=== PATIENT | male | born 1970 | race Caucasian/White ===

== ENCOUNTER 2018-02-05 10:30 | Outpatient (RCR) | payer MEDICARE, SELFPAY ==
[2018-01-29 09:44] VITALS: BP 140/77; PULSE 68; RESP 16; TEMP 36.5; BMI 43.0
--- NOTE | 2018-01-29 11:34 | PCM.WC.HP ---
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 Status: Acute Current Visit: Yes Qualifiers: Diabetic retinopathy severity: with severe nonproliferative retinopathy Laterality: bilateral Code(s): E08.319 - Diabetes mellitus due to underlying condition with unspecified diabetic retinopathy without macular edema (2) Type 2 diabetes mellitus with diabetic polyneuropathy Status: Chronic Current Visit: No Code(s): E11.42 - Type 2 diabetes mellitus with diabetic polyneuropathy (3) Open wound of abdominal wall with complication Status: Acute Current Visit: Yes Code(s): S31.109A - Unspecified open wound of abdominal wall, unspecified quadrant without penetration into peritoneal cavity, initial encounter (4) Infected open wound Status: Acute Current Visit: Yes Code(s): T14.8XXA - Other injury of unspecified body region, initial encounter; L08.9 - Local infection of the skin and subcutaneous tissue, unspecified (5) Nonhealing nonsurgical wound Status: Acute Current Visit: Yes Code(s): T14.8XXA - Other injury of unspecified body region, initial encounter (6) Morbid obesity with BMI of 45.0-49.9, adult Status: Acute Current Visit: Yes Code(s): E66.01 - Morbid (severe) obesity due to excess calories; Z68.42 - Body mass index (BMI) 45.0-49.9, adult History of Present Illness Date of Service: 01/29/18 Chief Complaint: Abdominal wall ulcer History of Wound: 47-year-old white male morbid obesity diabetic not controlled. Appears here with an abdominal open ulcer on the right side. Patient is insulin-dependent diabetic that injects only on the right side because of visual problems. Approximately 3 months ago developed a hardened mass on his right abdomen and told it was a scar tissue and to start using other areas to inject. Patient developed redness swelling and finally it opened and drained yellow and orange pus. Patient was then sent to the wound center patient has been using topical antibiotics to the area. Past Medical History Past Medical History: Chronic Problems Type 2 diabetes mellitus with diabetic polyneuropathy (Chronic) Past Medical History: Open ulcer abdominal abscess. Diabetic retinopathy with blindness. Edema bilateral lower leg Surgical History: noncontributory Allergies/Adverse Reactions: Allergies adhesive tape Allergy (Verified 01/29/18 10:05) Rash latex Allergy (Verified 01/29/18 10:05) Rash Penicillins [PCN] Allergy (Verified 01/29/18 10:05) Rash Home Medications: Ambulatory Orders Medication Instructions Recorded Amlodipine [Norvasc] 10 mg PO DAILY 03/31/17 Atorvastatin Calcium [Lipitor] 20 mg PO QHS 03/31/17 Bumetanide [Bumex] 2 mg PO BID 03/31/17 Carvedilol [Coreg] 12.5 mg PO DAILY 03/31/17 Cholecalciferol (Vitamin D3) 1,000 unit PO BID 03/31/17 [Vitamin D3] Ferrous Sulfate 65 mg PO BIDCM 03/31/17 Loratadine [Claritin] 10 mg PO DAILY 03/31/17 Losartan Potassium [Cozaar] 100 mg PO DAILY 03/31/17 Metformin(XR) [Glucophage Xr] 1,000 mg PO BID 03/31/17 Omeprazole [Prilosec] 40 mg PO BID 03/31/17 Spironolactone [Aldactone] 25 mg PO DAILY 03/31/17 Lives: Alone Smoking Status: Never smoker Tobacco Use: Non-smoker Review of Systems Constitutional: Denies: Chills, Fever Eyes: Denies: Blurred vision, Drainage, Pain HEENT: Denies: Difficulty Hearing, Difficulty Swallowing, Sore Throat, Visual Changes Cardiovascular: Denies: Chest Pain, Palpitations, Syncope Respiratory: Denies: Cough, Shortness of Breath Gastrointestinal: Denies: Abdominal Pain, Nausea, Vomiting Genitourinary: Denies: Dysuria, Frequency Musculoskeletal: Denies: Joint Pain, Muscle pain Skin: Reports: Wounds - Abscess right abdomen open. Denies: Jaundice, Rash Neurological: Denies: Balance problems, Change in Speech, Difficulty swallowing, Focal weakness Psychiatric: Denies: Anxiety, Depression Endocrine: Denies: Change in Body Habitus Hematologic/ Lymphatic: Denies: Adenopathy - Physical Exam Vital Signs Temp Pulse Resp BP 97.7 F L 68 16 140/77 H 01/29/18 09:44 01/29/18 09:44 01/29/18 09:44 01/29/18 09:44 General: Oriented x3, Cooperative, Well developed HEENT: Atraumatic, PERRLA Oral: Moist Mucosa Neck: Supple, No JVD Lungs: Clear to auscultation, Normal air movement Cardiovascular: Regular rate, Regular Rhythm Abdomen: Bowel Sounds Present, Soft, Non Tender, No Hepato-splenomegaly, - - Open ulcer right abdomen Extremities: No clubbing, Edema Wound Measurements and Assessment - Nurse 1 - General Ulcer Measurement Start: 01/29/18 09:36 Freq: Status: Active Protocol: Activity Type Activity Date Activity User E-Sign Co-Sign Detail Recorded Client Recorded Date Recorded By Document 01/29/18 09:44 [facility] [id number] 01/29/18 09:58 [facility] 01/29/18 09:44 Wound Center Nurse 1 [Ulcer Assessment] #2- RT ABD -Combined with other wound No -Current Size (cm) - Length 1.4 -Current Size (cm) - Width 1.9 -Current Size (cm) - Depth 0.3 -Total Square Cm 2.66 -Date of Last Picture (Recall this 01/29/18 field) -Photo Taken Yes -Epithelialization None Present -Tunneling No -Undermining/Tunneling No -Circular Undermining No -Exudate Amt Small (1-33%) -Exudate Type Sanguineous -Wound Margin Distinct, Outline Attached -Granulation Amt Medium (34-66%) -Granulation Quality Red -Slough/Fibrin Yes -Necrosis Amt Small (1-33%) -Necrotic Tissue Type Adherent Slough -Texture (Virginie-wound Skin Appearance) Excoriation Scarring -Moisture (Virginie-wound Skin Appearance Assessed ) -Color (Virginie-wound Skin Appearance) Erythema -Temperature (Virginie-wound Skin No Abnormality Appearance) (Pt Warm) -Tenderness on Palpation (Virginie-wound No Skin Appearance) -Ulcer Cleansing Rinsed/ Irrigated with Saline -Foul Odor after Cleansing No -Anesthetic Used 5% Lidocaine Gel - Nurse 2 - General Ulcer CM Notes Start: 01/29/18 09:36 Freq: Status: Active Protocol: Activity Type Activity Date Activity User E-Sign Co-Sign Detail Recorded Client Recorded Date Recorded By Document 01/29/18 10:28 [id number] 01/29/18 10:29 01/29/18 10:28 Wound Center Nurse 2 [Procedure/Treatment] -Time 10:28 -Correct Patient Yes -Correct Side, Site, Position Yes -Correct Procedure Yes -Procedure Performed Yes -Type of Procedure Debridement -Clinical Debridement Subcutaneous -Post Debridement Size (cm) - Length 1.3 -Post Debridement Size (cm) - Width 2.0 -Post Debridement Size (cm) - Depth 0.5 -Total Square Cm 2.60 -Wound/Ulcer Outcome Not Healed -Ulcer Cleansing Rinsed/ Irrigated with Saline -Foul Odor after Cleansing No -Bioengineered Tissue No -Injectable Lidocaine (%) 4 -Injectable Lidocaine w/ Epi (%) 5 -Bleeding Controlled with NA -Treatment Response Procedure Tolerated Well [See Physician Procedure note for Specifics] Pain Scale: 0-10 Numeric [Pain] -Is Patient Pain Free? Yes Musculoskeletal: No Tenderness to Palpation of Joints or Extremities Lymphatic: No Cervical, Supraclavicular, or Inguinal Adenopathy Neurological: Cranial nerves II-XII grossly intact, Neuro grossly intact Psych/Mental Status: Normal Affect, Appropriate, Alert and oriented to time, place, person, mood and affect Debridement Note Post-Debridement Measurements/Treatment WC - Nurse 2 - General Ulcer CM Notes Start: 01/29/18 09:36 Freq: Status: Active Protocol: Activity Type Activity Date Activity User E-Sign Co-Sign Detail Recorded Client Recorded Date Recorded By Document 01/29/18 10:28 [facility] [id number] 01/29/18 10:29 [facility] 01/29/18 10:28 Wound Center Nurse 2 #2- RT ABD -Time 10:28 -Correct Patient Yes -Correct Side, Site, Position Yes -Correct Procedure Yes -Procedure Performed Yes -Type of Procedure Debridement -Clinical Debridement Subcutaneous -Post Debridement Size (cm) - Length 1.3 -Post Debridement Size (cm) - Width 2.0 -Post Debridement Size (cm) - Depth 0.5 -Total Square Cm 2.60 -Wound/Ulcer Outcome Not Healed -Ulcer Cleansing Rinsed/ Irrigated with Saline -Foul Odor after Cleansing No -Bioengineered Tissue No -Injectable Lidocaine (%) 4 -Injectable Lidocaine w/ Epi (%) 5 -Bleeding Controlled with NA -Treatment Response Procedure Tolerated Well Pain Scale: 0-10 Numeric Is Patient Pain Free? Yes Wound debrided: Right abdominal wall ulcer Type of Debridement: Excisional debridement Anesthesia Used: 5% Lidocaine Gel Depth: Down to and including healthy tissue, in the subcutaneous layer, to muscle Percentage of wound debrided: 100 Instrument Used: 5mm curette Tissue Removed: Slough and fibrin Severity: Limited To Skin Breakdown Amount of bleeding with debridement: Mild Bleeding Controlled with: Compression and gauze Patient tolerated procedure well Assessment/Plan Cultures anaerobic and aerobic hemoglobin A1c and a preop human Active Problems Diabetic retinopathy associated with diabetes mellitus due to underlying condition (Acute) Open wound of abdominal wall with complication (Acute) Infected open wound (Acute) Nonhealing nonsurgical wound (Acute) Morbid obesity with BMI of 45.0-49.9, adult (Acute) Assessment: Infected abdominal wall ulcer. Abscess open abdominal wall right side. Diabetic type II uncontrolled. Morbid obesity. Retinopathy diabetic partial blindness Plan: Wash abdominal wall with Hibiclens. Apply Aquacel roping to the undermining and then into the base of the ulcer moistened Adaptic cover with gauze and tape. We will call with the results of the cultures and labs. Follow-up one week. Discussed better control of his diabetes
[2018-01-29 12:42] LABS: Prealbumin 35.7 mg/dL (20.0-40.0)
[2018-02-05 10:42] VITALS: BMI 43.0
--- NOTE | 2018-02-05 12:12 | PCM.WC.PN ---
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 Status: Acute Current Visit: Yes Qualifiers: Diabetic retinopathy severity: with severe nonproliferative retinopathy Laterality: bilateral Code(s): E08.319 - Diabetes mellitus due to underlying condition with unspecified diabetic retinopathy without macular edema (2) Type 2 diabetes mellitus with diabetic polyneuropathy Status: Chronic Current Visit: Yes Code(s): E11.42 - Type 2 diabetes mellitus with diabetic polyneuropathy (3) Open wound of abdominal wall with complication Status: Acute Current Visit: Yes Code(s): S31.109A - Unspecified open wound of abdominal wall, unspecified quadrant without penetration into peritoneal cavity, initial encounter (4) Infected open wound Status: Acute Current Visit: Yes Code(s): T14.8XXA - Other injury of unspecified body region, initial encounter; L08.9 - Local infection of the skin and subcutaneous tissue, unspecified (5) Nonhealing nonsurgical wound Status: Acute Current Visit: Yes Code(s): T14.8XXA - Other injury of unspecified body region, initial encounter (6) Morbid obesity with BMI of 45.0-49.9, adult Status: Acute Current Visit: Yes Code(s): E66.01 - Morbid (severe) obesity due to excess calories; Z68.42 - Body mass index (BMI) 45.0-49.9, adult Type of Wound Date of Service: 02/05/18 Chief Complaint: Abdominal wall ulcer History of Wound: 47-year-old white male morbid obesity diabetic not controlled. Appears here with an abdominal open ulcer on the right side. Patient is insulin-dependent diabetic that injects only on the right side because of visual problems. Approximately 3 months ago developed a hardened mass on his right abdomen and told it was a scar tissue and to start using other areas to inject. Patient developed redness swelling and finally it opened and drained yellow and orange pus. Patient was then sent to the wound center patient has been using topical antibiotics to the area. Progress of Wound: The abdominal wound is much larger and he developed a another inferior abscess below that was oozing pus with undermining of 1.0 under the skin. There was no bridging or connection of the 2 ulcers yet but I think they are ultimately 1 ulcer. We cultured the pus his original cultures showed rare but I did go ahead and treat him. Pre-albumin was normal for him hemoglobin A1c was well. - Physical Exam Vital Signs Temp Pulse Resp BP 97.7 F L 68 16 140/77 H 01/29/18 09:44 01/29/18 09:44 01/29/18 09:44 01/29/18 09:44 General: Oriented x3, Cooperative, Well developed HEENT: Atraumatic, PERRLA Oral: Moist Mucosa Neck: Supple, No JVD Lungs: Clear to auscultation, Normal air movement Cardiovascular: Regular rate, Regular Rhythm Abdomen: Bowel Sounds Present, Soft, Non Tender, No Hepato-splenomegaly Extremities: No clubbing, No edema Wound Measurements and Assessment WC - Nurse 1 - General Ulcer Measurement Start: 01/29/18 09:36 Freq: Status: Active Protocol: Activity Type Activity Date Activity User E-Sign Co-Sign Detail Recorded Client Recorded Date Recorded By Document 02/05/18 10:42 [id number] 02/05/18 10:48 02/05/18 10:42 Wound Center Nurse 1 [Ulcer Assessment] #2- RT ABD -Combined with other wound No -Current Size (cm) - Length 1.7 -Current Size (cm) - Width 3.3 -Current Size (cm) - Depth 0.6 -Total Square Cm 5.61 -Photo Taken No -Epithelialization None Present -Tunneling No -Undermining/Tunneling No -Circular Undermining No -Exudate Amt Medium (34-66%) -Exudate Type Serosanguineous -Wound Margin Distinct, Outline Attached -Granulation Amt None Present (0 %) -Granulation Quality N/A -Slough/Fibrin No -Necrosis Amt None Present (0 %) -Texture (Virginie-wound Skin Appearance) No Abnormality Assessed -Moisture (Virginie-wound Skin Appearance No Abnormality ) Assessed -Color (Virginie-wound Skin Appearance) Assessed Erythema -Temperature (Virginie-wound Skin No Abnormality Appearance) (Pt Warm) -Tenderness on Palpation (Virginie-wound No Skin Appearance) -Ulcer Cleansing Rinsed/ Irrigated with Saline -Foul Odor after Cleansing No -Anesthetic Used 4% Lidocaine Solution [Edema Assessment] -Lower Limb Edema Present NA - Nurse 2 - General Ulcer CM Notes Start: 01/29/18 09:36 Freq: Status: Active Protocol: Activity Type Activity Date Activity User E-Sign Co-Sign Detail Recorded Client Recorded Date Recorded By Document 02/05/18 11:14 [id number] 02/05/18 11:21 02/05/18 11:14 Wound Center Nurse 2 [Procedure/Treatment] #3 INFERIOR ABCESS ULCER -Time 11:19 -Correct Patient Yes -Correct Side, Site, Position Yes -Correct Procedure Yes -Procedure Performed Yes -Type of Procedure Debridement -Clinical Debridement Subcutaneous -Post Debridement Size (cm) - Length 0.3 -Post Debridement Size (cm) - Width 0.5 -Post Debridement Size (cm) - Depth 1.0 -Total Square Cm 0.15 -Wound/Ulcer Outcome Not Healed -Ulcer Cleansing Rinsed/ Irrigated with Saline -Foul Odor after Cleansing No -Bioengineered Tissue No -Bleeding Controlled with NA -Other CIRCUMFERENTIAL UNDERMINING @ 1.0 CM -Treatment Response Procedure Tolerated Well #2- RT ABD -Time 11:20 -Correct Patient Yes -Correct Side, Site, Position Yes -Correct Procedure Yes -Procedure Performed Yes -Type of Procedure Debridement -Clinical Debridement Subcutaneous -Post Debridement Size (cm) - Length 2.0 -Post Debridement Size (cm) - Width 3.3 -Post Debridement Size (cm) - Depth 1.6 -Total Square Cm 6.60 -Wound/Ulcer Outcome Not Healed -Ulcer Cleansing Rinsed/ Irrigated with Saline -Foul Odor after Cleansing No -Bioengineered Tissue No -Bleeding Controlled with NA -Treatment Response Procedure Tolerated Well [See Physician Procedure note for Specifics] Pain Scale: 0-10 Numeric [Pain] -Is Patient Pain Free? Yes Musculoskeletal: No Tenderness to Palpation of Joints or Extremities Lymphatic: No Cervical, Supraclavicular, or Inguinal Adenopathy Neurological: Cranial nerves II-XII grossly intact, Neuro grossly intact Psych/Mental Status: Normal Affect, Appropriate, Alert and oriented to time, place, person, mood and affect Debridement Note Post-Debridement Measurements/Treatment WC - Nurse 2 - General Ulcer CM Notes Start: 01/29/18 09:36 Freq: Status: Active Protocol: Activity Type Activity Date Activity User E-Sign Co-Sign Detail Recorded Client Recorded Date Recorded By Document 01/29/18 10:28 [id number] 01/29/18 10:29 Document 02/05/18 11:14 [id number] 02/05/18 11:21 01/29/18 02/05/18 10:28 11:14 Wound Center Nurse 2 #3 INFERIOR ABCESS ULCER -Time 11:19 -Correct Patient Yes -Correct Side, Site, Position Yes -Correct Procedure Yes -Procedure Performed Yes -Type of Procedure Debridement -Clinical Debridement Subcutaneous -Post Debridement Size (cm) - Length 0.3 -Post Debridement Size (cm) - Width 0.5 -Post Debridement Size (cm) - Depth 1.0 -Total Square Cm 0.15 -Wound/Ulcer Outcome Not Healed -Ulcer Cleansing Rinsed/ Irrigated with Saline -Foul Odor after Cleansing No -Bioengineered Tissue No -Bleeding Controlled with NA -Other CIRCUMFERENTIAL UNDERMINING @ 1.0 CM -Treatment Response Procedure Tolerated Well #2- RT ABD -Time 10:28 11:20 -Correct Patient Yes Yes -Correct Side, Site, Position Yes Yes -Correct Procedure Yes Yes -Procedure Performed Yes Yes -Type of Procedure Debridement Debridement -Clinical Debridement Subcutaneous Subcutaneous -Post Debridement Size (cm) - Length 1.3 2.0 -Post Debridement Size (cm) - Width 2.0 3.3 -Post Debridement Size (cm) - Depth 0.5 1.6 -Total Square Cm 2.60 6.60 -Wound/Ulcer Outcome Not Healed Not Healed -Ulcer Cleansing Rinsed/ Rinsed/ Irrigated with Irrigated with Saline Saline -Foul Odor after Cleansing No No -Bioengineered Tissue No No -Injectable Lidocaine (%) 4 -Injectable Lidocaine w/ Epi (%) 5 -Bleeding Controlled with NA NA -Treatment Response Procedure Procedure Tolerated Well Tolerated Well Pain Scale: 0-10 Numeric Is Patient Pain Free? Yes Yes Wound debrided: Right abdominal ulcer Type of Debridement: Excisional debridement Anesthesia Used: 5% Lidocaine Gel Depth: Down to and including healthy tissue, in the subcutaneous layer Percentage of wound debrided: 100 Instrument Used: 5mm curette Tissue Removed: Fibrin Severity: Limited To Skin Breakdown Amount of bleeding with debridement: Mild Bleeding Controlled with: Compression and gauze Patient tolerated procedure well - Additional Wound Wound debrided: Inferior abdominal ulcer abscess Type of Debridement: Excisional debridement Depth: in the subcutaneous layer Percentage of wound debrided: 100 Instrument Used: 5mm curette Tissue Removed: Pus and fibrin Severity: Fat Layer Exposed Amount of bleeding with debridement: Moderate Bleeding Controlled with: Compression and gauze Patient tolerated procedure: Patient tolerated procedure well Assessment/Plan Active Problems Diabetic retinopathy associated with diabetes mellitus due to underlying condition (Acute) Open wound of abdominal wall with complication (Acute) Infected open wound (Acute) Nonhealing nonsurgical wound (Acute) Morbid obesity with BMI of 45.0-49.9, adult (Acute) Type 2 diabetes mellitus with diabetic polyneuropathy (Chronic) Assessment: Infected abdominal wall ulcer. Abscess open abdominal wall right side. Diabetic type II uncontrolled. Morbid obesity. Retinopathy diabetic partial blindness Plan: Wash abdominal wall with Hibiclens. Apply Aquacel roping to the undermining and then into the base of the ulcer. And also into the inferior ulcer pack ulcer moistened Adaptic cover with gauze and tape. We will call with the results of the cultures. Follow-up one week. Discussed better control of his diabetes
== END 2018-02-09 23:59 ==
LOC: WC 10:30
PROVIDERS: Visit Provider Nurse Practitioner
DX: E11.622 Type 2 diabetes mellitus with other skin ulcer (principal); E11.42 Type 2 diabetes mellitus with diabetic polyneuropathy; E11.319 Type 2 diabetes mellitus with unspecified diabetic retinopathy without macular edema; E66.01 Morbid (severe) obesity due to excess calories; Z68.42 Body mass index [BMI] 45.0-49.9, adult; Z71.3 Dietary counseling and surveillance; E11.65 Type 2 diabetes mellitus with hyperglycemia; L98.491 Non-pressure chronic ulcer of skin of other sites limited to breakdown of skin; L98.492 Non-pressure chronic ulcer of skin of other sites with fat layer exposed; Z79.899 Other long term (current) drug therapy; Z79.84 Long term (current) use of oral hypoglycemic drugs
CPT/HCPCS: 11042; 83036; 84134; 87070; 87075; 87077; 87186; 87205; 99213; G0463

== ENCOUNTER 2018-02-26 10:30 | Outpatient (RCR) | payer MEDICARE, SELFPAY ==
[2018-02-10 01:30] VITALS: BP 140/77; PULSE 68; RESP 16; TEMP 36.5
[2018-02-12 11:03] VITALS: BP 148/76; PULSE 69; RESP 16; TEMP 36.6
--- NOTE | 2018-02-12 11:49 | PCM.WC.PN ---
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 Status: Acute Current Visit: Yes Code(s): E08.319 - Diabetes mellitus due to underlying condition with unspecified diabetic retinopathy without macular edema (2) Morbid obesity with BMI of 45.0-49.9, adult Status: Acute Current Visit: Yes Code(s): E66.01 - Morbid (severe) obesity due to excess calories; Z68.42 - Body mass index (BMI) 45.0-49.9, adult (3) Open wound of abdominal wall with complication Status: Acute Current Visit: Yes Qualifiers: Encounter type: subsequent encounter Qualified Code(s): S31.109D - Unspecified open wound of abdominal wall, unspecified quadrant without penetration into peritoneal cavity, subsequent encounter Code(s): S31.109A - Unspecified open wound of abdominal wall, unspecified quadrant without penetration into peritoneal cavity, initial encounter Type of Wound Date of Service: 02/12/18 Chief Complaint: Abdominal wall ulcer History of Wound: 47-year-old white male morbid obesity diabetic not controlled. Appears here with an abdominal open ulcer on the right side. Patient is insulin-dependent diabetic that injects only on the right side because of visual problems. Approximately 3 months ago developed a hardened mass on his right abdomen and told it was a scar tissue and to start using other areas to inject. Patient developed redness swelling and finally it opened and drained yellow and orange pus. Patient was then sent to the wound center patient has been using topical antibiotics to the area. Progress of Wound: The abdominal wound is much larger and he developed a another inferior abscess below that was oozing pus with undermining of 1.0 under the skin. There was no bridging or connection of the 2 ulcers yet but I think they are ultimately 1 ulcer. We cultured the pus his original cultures showed rare but I did go ahead and treat him. Pre-albumin was normal for him hemoglobin A1c was well. - Physical Exam Vital Signs Temp Pulse Resp BP 97.8 F 69 16 148/76 H 02/12/18 11:03 02/12/18 11:03 02/12/18 11:02/12/18 11:03 General: Oriented x3, Cooperative, Well developed HEENT: Atraumatic, PERRLA Oral: Moist Mucosa Neck: Supple, No JVD Lungs: Clear to auscultation, Normal air movement Cardiovascular: Regular rate, Regular Rhythm Abdomen: Bowel Sounds Present, Soft, Non Tender, No Hepato-splenomegaly, - - Right abdominal ulcer and inferior and superior Extremities: No clubbing, No edema Wound Measurements and Assessment WC - Nurse 1 - General Ulcer Measurement Start: 02/12/18 10:30 Freq: Status: Active Protocol: Activity Type Activity Date Activity User E-Sign Co-Sign Detail Recorded Client Recorded Date Recorded By Document 02/12/18 11:03 [id number] 02/12/18 11:16 02/12/18 11:03 Wound Center Nurse 1 [Ulcer Assessment] #3 INFERIOR ABCESS ULCER -Combined with other wound No -Current Size (cm) - Length 0.8 -Current Size (cm) - Width 1.6 -Current Size (cm) - Depth 0.4 -Total Square Cm 1.28 -Date of Last Picture (Recall this 02/12/18 field) -Photo Taken Yes -Epithelialization None Present -Tunneling No -Undermining/Tunneling Yes -Undermining/Tunneling Starts (O' 7 clock) -Undermining/Tunneling Ends (O'clock) 10 -Maximum Distance (cm) 0.8 -Circular Undermining No -Exudate Amt Medium (34-66%) -Exudate Type Serosanguineous -Wound Margin Distinct, Outline Attached -Granulation Amt Medium (34-66%) -Granulation Quality [place] Red -Slough/Fibrin Yes -Necrosis Amt Medium (34-66%) -Necrotic Tissue Type Adherent Slough -Structure Exposed None/Limited to Skin Breakdown -Texture (Virginie-wound Skin Appearance) No Abnormality Assessed -Moisture (Virginie-wound Skin Appearance No Abnormality ) Assessed -Color (Virginie-wound Skin Appearance) No Abnormality Assessed -Temperature (Virginie-wound Skin No Abnormality Appearance) (Pt Warm) -Tenderness on Palpation (Virginie-wound No Skin Appearance) -Ulcer Cleansing Rinsed/ Irrigated with Saline -Foul Odor after Cleansing No -Anesthetic Used 4% Lidocaine Solution #2- RT ABD SUPERIOR -Combined with other wound No -Current Size (cm) - Length 1.9 -Current Size (cm) - Width 3.7 -Current Size (cm) - Depth 0.3 -Total Square Cm 7.03 -Photo Taken No -Tunneling No -Undermining/Tunneling No -Circular Undermining No -Exudate Amt Medium (34-66%) -Exudate Type Serosanguineous -Wound Margin Distinct, Outline Attached -Granulation Amt Medium (34-66%) -Granulation Quality [place] Red -Slough/Fibrin Yes -Necrosis Amt None Present (0 %) -Necrotic Tissue Type Adherent Slough -Texture (Virginie-wound Skin Appearance) No Abnormality Assessed -Moisture (Virginie-wound Skin Appearance No Abnormality ) Assessed -Color (Virginie-wound Skin Appearance) No Abnormality Assessed Not Assessed -Temperature (Virginie-wound Skin No Abnormality Appearance) (Pt Warm) -Tenderness on Palpation (Virginie-wound No Skin Appearance) -Ulcer Cleansing Rinsed/ Irrigated with Saline -Foul Odor after Cleansing No -Anesthetic Used 5% Lidocaine Gel [Edema Assessment] -Lower Limb Edema Present NA WC - Nurse 2 - General Ulcer CM Notes Start: 02/12/18 10:30 Freq: Status: Active Protocol: Activity Type Activity Date Activity User E-Sign Co-Sign Detail Recorded Client Recorded Date Recorded By Document 02/12/18 11:28 MW [id number] 02/12/18 11:35 MW 02/12/18 11:28 Wound Center Nurse 2 [Procedure/Treatment] #3 INFERIOR ABCESS ULCER -Time 11:29 -Correct Patient Yes -Correct Side, Site, Position Yes -Correct Procedure Yes -Procedure Performed Yes -Type of Procedure Debridement -Clinical Debridement Subcutaneous -Post Debridement Size (cm) - Length 0.8 -Post Debridement Size (cm) - Width 1.5 -Post Debridement Size (cm) - Depth 0.3 -Total Square Cm 1.20 -Wound/Ulcer Outcome Not Healed -Ulcer Cleansing Rinsed/ Irrigated with Saline -Foul Odor after Cleansing No -Bioengineered Tissue No -Bleeding Controlled with Pressure -Treatment Response Procedure Tolerated Well #2- RT ABD SUPERIOR -Time 11:30 -Correct Patient Yes -Correct Side, Site, Position Yes -Correct Procedure Yes -Procedure Performed Yes -Type of Procedure Debridement -Clinical Debridement Subcutaneous -Post Debridement Size (cm) - Length 1.8 -Post Debridement Size (cm) - Width 3.6 -Post Debridement Size (cm) - Depth 0.3 -Total Square Cm 6.48 -Wound/Ulcer Outcome Not Healed -Ulcer Cleansing Rinsed/ Irrigated with Saline -Foul Odor after Cleansing No -Bioengineered Tissue No -Bleeding Controlled with Pressure -Treatment Response Procedure Tolerated Well [See Physician Procedure note for Specifics] Pain Scale: 0-10 Numeric [Pain] -Is Patient Pain Free? Yes Musculoskeletal: No Tenderness to Palpation of Joints or Extremities Lymphatic: No Cervical, Supraclavicular, or Inguinal Adenopathy Neurological: Cranial nerves II-XII grossly intact, Neuro grossly intact Psych/Mental Status: Normal Affect, Appropriate Debridement Note Post-Debridement Measurements/Treatment WC - Nurse 2 - General Ulcer CM Notes Start: 02/12/18 10:30 Freq: Status: Active Protocol: Activity Type Activity Date Activity User E-Sign Co-Sign Detail Recorded Client Recorded Date Recorded By Document 02/12/18 11:28 MW [id number] 02/12/18 11:35 MW 02/12/18 11:28 Wound Center Nurse 2 #3 INFERIOR ABCESS ULCER -Time 11:29 -Correct Patient Yes -Correct Side, Site, Position Yes -Correct Procedure Yes -Procedure Performed Yes -Type of Procedure Debridement -Clinical Debridement Subcutaneous -Post Debridement Size (cm) - Length 0.8 -Post Debridement Size (cm) - Width 1.5 -Post Debridement Size (cm) - Depth 0.3 -Total Square Cm 1.20 -Wound/Ulcer Outcome Not Healed -Ulcer Cleansing Rinsed/ Irrigated with Saline -Foul Odor after Cleansing No -Bioengineered Tissue No -Bleeding Controlled with Pressure -Treatment Response Procedure Tolerated Well #2- RT ABD SUPERIOR -Time 11:30 -Correct Patient Yes -Correct Side, Site, Position Yes -Correct Procedure Yes -Procedure Performed Yes -Type of Procedure Debridement -Clinical Debridement Subcutaneous -Post Debridement Size (cm) - Length 1.8 -Post Debridement Size (cm) - Width 3.6 -Post Debridement Size (cm) - Depth 0.3 -Total Square Cm 6.48 -Wound/Ulcer Outcome Not Healed -Ulcer Cleansing Rinsed/ Irrigated with Saline -Foul Odor after Cleansing No -Bioengineered Tissue No -Bleeding Controlled with Pressure -Treatment Response Procedure Tolerated Well Pain Scale: 0-10 Numeric Is Patient Pain Free? Yes Wound debrided: Superior abdominal ulcer Type of Debridement: Excisional debridement Anesthesia Used: 5% Lidocaine Gel Depth: Down to and including healthy tissue, in the subcutaneous layer Percentage of wound debrided: 100 Instrument Used: 5mm curette Tissue Removed: Fibrin Severity: Fat Layer Exposed Amount of bleeding with debridement: Mild Bleeding Controlled with: Compression and gauze Patient tolerated procedure well - Additional Wound Wound debrided: Inferior right abdominal ulcer Type of Debridement: Excisional debridement Anesthesia Used: 5% Lidocaine Gel Depth: Down to and including healthy tissue, in the subcutaneous layer Instrument Used: 5mm curette Tissue Removed: Fibrin Severity: Fat Layer Exposed Amount of bleeding with debridement: Mild Bleeding Controlled with: Compression and gauze Patient tolerated procedure: Patient tolerated procedure well Assessment/Plan Active Problems Diabetic retinopathy associated with diabetes mellitus due to underlying condition (Acute) Open wound of abdominal wall with complication (Acute) Morbid obesity with BMI of 45.0-49.9, adult (Acute) Assessment: Infected abdominal wall ulcer resolved. Abscess open abdominal wall right side. Diabetic type II uncontrolled. Morbid obesity. Retinopathy diabetic partial blindness Plan: Wash abdominal wall with Hibiclens. Apply Aquacel to the undermining and then into the base of the ulcer. And also into the inferior ulcer pack ulcer moistened Adaptic cover with gauze and tape. We will call with the results of the cultures. Follow-up one week. Discussed better control of his diabetes
[2018-02-19 09:39] VITALS: BP 157/80; PULSE 77; RESP 18; TEMP 36.5
--- NOTE | 2018-02-19 10:42 | PCM.WC.PN ---
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 Status: Acute Current Visit: Yes Code(s): E08.319 - Diabetes mellitus due to underlying condition with unspecified diabetic retinopathy without macular edema (2) Morbid obesity with BMI of 45.0-49.9, adult Status: Acute Current Visit: Yes Code(s): E66.01 - Morbid (severe) obesity due to excess calories; Z68.42 - Body mass index (BMI) 45.0-49.9, adult (3) Open wound of abdominal wall with complication Status: Acute Current Visit: Yes Qualifiers: Encounter type: subsequent encounter Qualified Code(s): S31.109D - Unspecified open wound of abdominal wall, unspecified quadrant without penetration into peritoneal cavity, subsequent encounter Code(s): S31.109A - Unspecified open wound of abdominal wall, unspecified quadrant without penetration into peritoneal cavity, initial encounter Type of Wound Date of Service: 02/19/18 Chief Complaint: Abdominal wall ulcer History of Wound: 47-year-old white male morbid obesity diabetic not controlled. Appears here with an abdominal open ulcer on the right side. Patient is insulin-dependent diabetic that injects only on the right side because of visual problems. Approximately 3 months ago developed a hardened mass on his right abdomen and told it was a scar tissue and to start using other areas to inject. Patient developed redness swelling and finally it opened and drained yellow and orange pus. Patient was then sent to the wound center patient has been using topical antibiotics to the area. Progress of Wound: The abdominal wound is about the same this week slightly smaller on the superior ulcer. The undermining appears to be gone from the inferior ulcer. We cultured the pus his original cultures showed rare but I did go ahead and treat him. Pre-albumin was normal for him hemoglobin A1c was well. Today we discussed with him a snap wound VAC to be applied. Patient will continue using the dressing changes as prescribed and as soon as he gets the machine will call and make an appointment or bring it with him to the next appointment. - Physical Exam Vital Signs Temp Pulse Resp BP 97.7 F L 77 18 157/80 H 02/19/18 09:39 02/19/18 09:39 02/19/18 09:39 02/19/18 09:39 General: Oriented x3, Cooperative, Well developed HEENT: Atraumatic, PERRLA Oral: Moist Mucosa Neck: Supple, No JVD Lungs: Clear to auscultation, Normal air movement Cardiovascular: Regular rate, Regular Rhythm Abdomen: Bowel Sounds Present, Soft, Non Tender, No Hepato-splenomegaly Extremities: No clubbing, No edema Skin: Ulcer/ Wound - Abdominal ulcers ?2 right side Wound Measurements and Assessment WC - Nurse 1 - General Ulcer Measurement Start: 02/12/18 10:30 Freq: Status: Active Protocol: Activity Type Activity Date Activity User E-Sign Co-Sign Detail Recorded Client Recorded Date Recorded By Document 02/19/18 09:39 [id number] 02/19/18 09:42 02/19/18 09:39 Wound Center Nurse 1 [Ulcer Assessment] #3 INFERIOR ABCESS ULCER -Combined with other wound No -Current Size (cm) - Length 1.0 -Current Size (cm) - Width 2.0 -Current Size (cm) - Depth 0.2 -Total Square Cm 2.00 -Photo Taken No -Epithelialization Small 1-33% -Tunneling No -Undermining/Tunneling No -Circular Undermining No -Classification - Thickness Full Thickness without Exposed Support Structure -Exudate Amt Small (1-33%) -Exudate Type Serosanguineous -Wound Margin Distinct, Outline Attached -Granulation Amt Large (67-100%) -Granulation Quality Red -Slough/Fibrin Yes -Necrosis Amt Small (1-33%) -Necrotic Tissue Type Adherent Slough -Structure Exposed Fascia Fat Layer Exposed -Texture (Virginie-wound Skin Appearance) No Abnormality Assessed -Moisture (Virginie-wound Skin Appearance No Abnormality ) Assessed -Color (Virginie-wound Skin Appearance) No Abnormality Assessed -Temperature (Virginie-wound Skin No Abnormality Appearance) (Pt Warm) -Tenderness on Palpation (Virginie-wound No Skin Appearance) -Ulcer Cleansing Rinsed/ Irrigated with Saline -Foul Odor after Cleansing No -Anesthetic Used 5% Lidocaine Gel #2- RT ABD SUPERIOR -Combined with other wound No -Current Size (cm) - Length 1.7 -Current Size (cm) - Width 3.0 -Current Size (cm) - Depth 0.2 -Total Square Cm 5.10 -Photo Taken No -Epithelialization Small 1-33% -Tunneling No -Undermining/Tunneling No -Circular Undermining No -Classification - Thickness Full Thickness without Exposed Support Structure -Exudate Amt Medium (34-66%) -Exudate Type Serosanguineous -Wound Margin Distinct, Outline Attached -Granulation Amt Large (67-100%) -Granulation Quality Red -Slough/Fibrin Yes -Necrosis Amt Small (1-33%) -Necrotic Tissue Type Adherent Slough -Structure Exposed Fascia Fat Layer Exposed -Texture (Virginie-wound Skin Appearance) No Abnormality Assessed -Moisture (Virginie-wound Skin Appearance No Abnormality ) Assessed -Color (Virginie-wound Skin Appearance) No Abnormality Assessed -Temperature (Virginie-wound Skin No Abnormality Appearance) (Pt Warm) -Tenderness on Palpation (Virginie-wound No Skin Appearance) -Ulcer Cleansing Rinsed/ Irrigated with Saline -Foul Odor after Cleansing No -Anesthetic Used 5% Lidocaine Gel [Edema Assessment] -Lower Limb Edema Present No WC - Nurse 2 - General Ulcer CM Notes Start: 02/12/18 10:30 Freq: Status: Active Protocol: Activity Type Activity Date Activity User E-Sign Co-Sign Detail Recorded Client Recorded Date Recorded By Document 02/19/18 10:01 CARLTON [id number] 02/19/18 10:02 CARLTON 02/19/18 10:01 Wound Center Nurse 2 [Procedure/Treatment] #3 INFERIOR ABCESS ULCER -Time 10:01 -Correct Patient Yes -Correct Side, Site, Position Yes -Correct Procedure Yes -Procedure Performed Yes -Type of Procedure Debridement -Clinical Debridement Subcutaneous -Post Debridement Size (cm) - Length 0.9 -Post Debridement Size (cm) - Width 1.9 -Post Debridement Size (cm) - Depth 0.3 -Total Square Cm 1.71 -Wound/Ulcer Outcome Not Healed -Ulcer Cleansing Rinsed/ Irrigated with Saline -Foul Odor after Cleansing No -Bioengineered Tissue No -Bleeding Controlled with NA -Treatment Response Procedure Tolerated Well #2- RT ABD SUPERIOR -Time 10:01 -Correct Patient Yes -Correct Side, Site, Position Yes -Correct Procedure Yes -Procedure Performed Yes -Type of Procedure Debridement -Clinical Debridement Subcutaneous -Post Debridement Size (cm) - Length 1.9 -Post Debridement Size (cm) - Width 3.3 -Post Debridement Size (cm) - Depth 0.9 -Total Square Cm 6.27 -Wound/Ulcer Outcome Not Healed -Ulcer Cleansing Rinsed/ Irrigated with Saline -Foul Odor after Cleansing No -Bioengineered Tissue No -Bleeding Controlled with NA -Treatment Response Procedure Tolerated Well [See Physician Procedure note for Specifics] Pain Scale: 0-10 Numeric [Pain] -Is Patient Pain Free? Yes Musculoskeletal: No Tenderness to Palpation of Joints or Extremities Lymphatic: No Cervical, Supraclavicular, or Inguinal Adenopathy Neurological: Cranial nerves II-XII grossly intact, Neuro grossly intact Psych/Mental Status: Normal Affect, Appropriate Debridement Note Post-Debridement Measurements/Treatment WC - Nurse 2 - General Ulcer CM Notes Start: 02/12/18 10:30 Freq: Status: Active Protocol: Activity Type Activity Date Activity User E-Sign Co-Sign Detail Recorded Client Recorded Date Recorded By Document 02/12/18 11:28 MW [id number] 02/12/18 11:35 MW Document 02/19/18 10:01 JS [id number] 02/19/18 10:02 JS 02/12/18 02/19/18 11:28 10:01 Wound Center Nurse 2 #3 INFERIOR ABCESS ULCER -Time 11:29 10:01 -Correct Patient Yes Yes -Correct Side, Site, Position Yes Yes -Correct Procedure Yes Yes -Procedure Performed Yes Yes -Type of Procedure Debridement Debridement -Clinical Debridement Subcutaneous Subcutaneous -Post Debridement Size (cm) - Length 0.8 0.9 -Post Debridement Size (cm) - Width 1.5 1.9 -Post Debridement Size (cm) - Depth 0.3 0.3 -Total Square Cm 1.20 1.71 -Wound/Ulcer Outcome Not Healed Not Healed -Ulcer Cleansing Rinsed/ Rinsed/ Irrigated with Irrigated with Saline Saline -Foul Odor after Cleansing No No -Bioengineered Tissue No No -Bleeding Controlled with Pressure NA -Treatment Response Procedure Procedure Tolerated Well Tolerated Well #2- RT ABD SUPERIOR -Time 11:30 10:01 -Correct Patient Yes Yes -Correct Side, Site, Position Yes Yes -Correct Procedure Yes Yes -Procedure Performed Yes Yes -Type of Procedure Debridement Debridement -Clinical Debridement Subcutaneous Subcutaneous -Post Debridement Size (cm) - Length 1.8 1.9 -Post Debridement Size (cm) - Width 3.6 3.3 -Post Debridement Size (cm) - Depth 0.3 0.9 -Total Square Cm 6.48 6.27 -Wound/Ulcer Outcome Not Healed Not Healed -Ulcer Cleansing Rinsed/ Rinsed/ Irrigated with Irrigated with Saline Saline -Foul Odor after Cleansing No No -Bioengineered Tissue No No -Bleeding Controlled with Pressure NA -Treatment Response Procedure Procedure Tolerated Well Tolerated Well Pain Scale: 0-10 Numeric Is Patient Pain Free? Yes Yes Wound debrided: Superior abdominal right ulcer Type of Debridement: Excisional debridement Anesthesia Used: 5% Lidocaine Gel Depth: Down to and including healthy tissue, in the subcutaneous layer Percentage of wound debrided: 100 Instrument Used: 5mm curette Tissue Removed: Fibrin Severity: Limited To Skin Breakdown Amount of bleeding with debridement: Moderate Bleeding Controlled with: Compression and gauze Patient tolerated procedure well - Additional Wound Wound debrided: Inferior right abdominal ulcer Type of Debridement: Excisional debridement Anesthesia Used: 5% Lidocaine Gel Depth: Down to and including healthy tissue, in the subcutaneous layer Percentage of wound debrided: 100 Instrument Used: 5mm curette Tissue Removed: Fibrin Severity: Limited To Skin Breakdown Amount of bleeding with debridement: Mild Bleeding Controlled with: Compression and gauze Patient tolerated procedure: Patient tolerated procedure well Assessment/Plan Active Problems Diabetic retinopathy associated with diabetes mellitus due to underlying condition (Acute) Open wound of abdominal wall with complication (Acute) Morbid obesity with BMI of 45.0-49.9, adult (Acute) Assessment: Infected abdominal wall ulcer resolved. Abscess open abdominal wall right side. Diabetic type II uncontrolled. Morbid obesity. Retinopathy diabetic partial blindness Plan: Wash abdominal wall with Hibiclens. Apply Aquacel to base of the ulcer. And also into the inferior ulcer pack ulcer moistened then Adaptic cover with gauze and tape. Call nursing when wound VAC is delivered. Follow-up one week. Discussed better control of his diabetes
--- NOTE | 2018-02-22 11:55 | WC ---
Pre-Authorization for SNaP Disposable VAC [id number]) obtained from [employer] (Ref. # [id number]) Informed pre-authorization is not required. Application will be Thursday02/26/18 with next appointment.
[2018-02-26 11:46] VITALS: BP 135/60; PULSE 71; RESP 18; TEMP 36.3
--- NOTE | 2018-02-26 12:31 | PCM.WC.PN ---
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 Status: Acute Current Visit: Yes Code(s): E08.319 - Diabetes mellitus due to underlying condition with unspecified diabetic retinopathy without macular edema (2) Morbid obesity with BMI of 45.0-49.9, adult Status: Acute Current Visit: Yes Code(s): E66.01 - Morbid (severe) obesity due to excess calories; Z68.42 - Body mass index (BMI) 45.0-49.9, adult (3) Open wound of abdominal wall with complication Status: Acute Current Visit: Yes Qualifiers: Encounter type: subsequent encounter Qualified Code(s): S31.109D - Unspecified open wound of abdominal wall, unspecified quadrant without penetration into peritoneal cavity, subsequent encounter Code(s): S31.109A - Unspecified open wound of abdominal wall, unspecified quadrant without penetration into peritoneal cavity, initial encounter Type of Wound Date of Service: 02/26/18 Chief Complaint: Abdominal wall ulcer History of Wound: 47-year-old white male morbid obesity diabetic not controlled. Appears here with an abdominal open ulcer on the right side. Patient is insulin-dependent diabetic that injects only on the right side because of visual problems. Approximately 3 months ago developed a hardened mass on his right abdomen and told it was a scar tissue and to start using other areas to inject. Patient developed redness swelling and finally it opened and drained yellow and orange pus. Patient was then sent to the wound center patient has been using topical antibiotics to the area. Progress of Wound: The abdominal wound is slightly smaller on the superior ulcer. Definitely better in depth. The gentleman for [place] was in and discussed the wound VAC with the family they want to investigate reynolds so we held on the wound VAC for another 2 weeks and they can make a decision he could be healed or much better while he will not need the wound VAC by then but will reevaluate in 2 weeks. The undermining appears to be gone from the inferior ulcer. We cultured the pus his original cultures showed rare but I did go ahead and treat him. Pre-albumin was normal for him hemoglobin A1c was well. Patient will continue using the dressing changes as prescribed . - Physical Exam Vital Signs Temp Pulse Resp BP 97.3 F L 71 18 135/60 H 02/26/18 11:46 02/26/18 11:46 02/26/18 11:46 02/26/18 11:46 General: Oriented x3, Cooperative, Well developed HEENT: Atraumatic, PERRLA Oral: Moist Mucosa Neck: Supple, No JVD Lungs: Clear to auscultation, Normal air movement Cardiovascular: Regular rate, Regular Rhythm Abdomen: Bowel Sounds Present, Soft, Non Tender, No Hepato-splenomegaly, - - 2 abdominal ulcers right lateral side Extremities: No clubbing, No edema Wound Measurements and Assessment WC - Nurse 1 - General Ulcer Measurement Start: 02/12/18 10:30 Freq: Status: Active Protocol: Activity Type Activity Date Activity User E-Sign Co-Sign Detail Recorded Client Recorded Date Recorded By Document 02/26/18 11:46 [id number] 02/26/18 11:48 02/26/18 11:46 Wound Center Nurse 1 [Ulcer Assessment] #3 INFERIOR ABCESS ULCER -Combined with other wound No -Current Size (cm) - Length 1.0 -Current Size (cm) - Width 0.9 -Current Size (cm) - Depth 0.3 -Total Square Cm 0.90 -Photo Taken No -Epithelialization Small 1-33% -Tunneling No -Undermining/Tunneling No -Circular Undermining No -Classification - Thickness Full Thickness without Exposed Support Structure -Exudate Amt Medium (34-66%) -Exudate Type Serosanguineous -Wound Margin Distinct, Outline Attached -Granulation Amt Large (67-100%) -Granulation Quality Red -Slough/Fibrin Yes -Necrosis Amt Small (1-33%) -Necrotic Tissue Type Adherent Slough -Structure Exposed Fascia Fat Layer Exposed -Texture (Virginie-wound Skin Appearance) No Abnormality Assessed -Moisture (Virginie-wound Skin Appearance No Abnormality ) Assessed -Color (Virginie-wound Skin Appearance) No Abnormality Assessed -Temperature (Virginie-wound Skin No Abnormality Appearance) (Pt Warm) -Tenderness on Palpation (Virginie-wound No Skin Appearance) -Ulcer Cleansing Rinsed/ Irrigated with Saline -Foul Odor after Cleansing No -Anesthetic Used 4% Lidocaine Solution #2- RT ABD SUPERIOR -Combined with other wound No -Current Size (cm) - Length 1.6 -Current Size (cm) - Width 3.0 -Current Size (cm) - Depth 0.3 -Total Square Cm 4.80 -Photo Taken No -Epithelialization Small 1-33% -Tunneling No -Undermining/Tunneling No -Circular Undermining No -Classification - Thickness Full Thickness without Exposed Support Structure -Exudate Amt Medium (34-66%) -Exudate Type Serosanguineous -Wound Margin Distinct, Outline Attached -Granulation Amt Large (67-100%) -Granulation Quality Red -Slough/Fibrin Yes -Necrosis Amt Small (1-33%) -Necrotic Tissue Type Adherent Slough -Structure Exposed Fascia Fat Layer Exposed -Texture (Virginie-wound Skin Appearance) No Abnormality Assessed -Moisture (Virginie-wound Skin Appearance No Abnormality ) Assessed -Color (Virginie-wound Skin Appearance) No Abnormality Assessed -Temperature (Virginie-wound Skin No Abnormality Appearance) (Pt Warm) -Tenderness on Palpation (Virginie-wound No Skin Appearance) -Ulcer Cleansing Rinsed/ Irrigated with Saline -Foul Odor after Cleansing No -Anesthetic Used 4% Lidocaine Solution [Edema Assessment] -Lower Limb Edema Present No WC - Nurse 2 - General Ulcer CM Notes Start: 02/12/18 10:30 Freq: Status: Active Protocol: Activity Type Activity Date Activity User E-Sign Co-Sign Detail Recorded Client Recorded Date Recorded By Document 02/26/18 11:59 [id number] 02/26/18 12:01 02/26/18 11:59 Wound Center Nurse 2 [Procedure/Treatment] #3 INFERIOR ABCESS ULCER -Time 11:59 -Correct Patient Yes -Correct Side, Site, Position Yes -Correct Procedure Yes -Procedure Performed Yes -Type of Procedure Debridement -Clinical Debridement Subcutaneous -Post Debridement Size (cm) - Length 0.9 -Post Debridement Size (cm) - Width 2 -Post Debridement Size (cm) - Depth 0.3 -Total Square Cm 1.8 -Wound/Ulcer Outcome Not Healed -Ulcer Cleansing Rinsed/ Irrigated with Saline -Foul Odor after Cleansing No -Bioengineered Tissue No -Bleeding Controlled with Pressure -Treatment Response Procedure Tolerated Well #2- RT ABD SUPERIOR -Time 12:00 -Correct Patient Yes -Correct Side, Site, Position Yes -Correct Procedure Yes -Procedure Performed Yes -Type of Procedure Debridement -Clinical Debridement Subcutaneous -Post Debridement Size (cm) - Length 1.3 -Post Debridement Size (cm) - Width 2.9 -Post Debridement Size (cm) - Depth 0.3 -Total Square Cm 3.77 -Wound/Ulcer Outcome Not Healed -Ulcer Cleansing Rinsed/ Irrigated with Saline -Foul Odor after Cleansing No -Bioengineered Tissue No -Bleeding Controlled with Pressure -Treatment Response Procedure Tolerated Well [See Physician Procedure note for Specifics] Pain Scale: 0-10 Numeric [Pain] -Is Patient Pain Free? Yes Musculoskeletal: No Tenderness to Palpation of Joints or Extremities Lymphatic: No Cervical, Supraclavicular, or Inguinal Adenopathy Neurological: Cranial nerves II-XII grossly intact, Neuro grossly intact Psych/Mental Status: Normal Affect, Appropriate Debridement Note Post-Debridement Measurements/Treatment WC - Nurse 2 - General Ulcer CM Notes Start: 02/12/18 10:30 Freq: Status: Active Protocol: Activity Type Activity Date Activity User E-Sign Co-Sign Detail Recorded Client Recorded Date Recorded By Document 02/12/18 11:28 MW [id number] 02/12/18 11:35 MW Document 02/19/18 10:01 JS [id number] 02/19/18 10:02 JS Document 02/26/18 11:59 CS [id number] 02/26/18 12:01 CS 02/12/18 02/19/18 02/26/18 11:28 10:01 11:59 Wound Center Nurse 2 #3 INFERIOR ABCESS ULCER -Time 11:29 10:01 11:59 -Correct Patient Yes Yes Yes -Correct Side, Site, Position Yes Yes Yes -Correct Procedure Yes Yes Yes -Procedure Performed Yes Yes Yes -Type of Procedure Debridement Debridement Debridement -Clinical Debridement Subcutaneous Subcutaneous Subcutaneous -Post Debridement Size (cm) - Length 0.8 0.9 0.9 -Post Debridement Size (cm) - Width 1.5 1.9 2 -Post Debridement Size (cm) - Depth 0.3 0.3 0.3 -Total Square Cm 1.20 1.71 1.8 -Wound/Ulcer Outcome Not Healed Not Healed Not Healed -Ulcer Cleansing Rinsed/ Rinsed/ Rinsed/ Irrigated with Irrigated with Irrigated with Saline Saline Saline -Foul Odor after Cleansing No No No -Bioengineered Tissue No No No -Bleeding Controlled with Pressure NA Pressure -Treatment Response Procedure Procedure Procedure Tolerated Well Tolerated Well Tolerated Well #2- RT ABD SUPERIOR -Time 11:30 10:01 12:00 -Correct Patient Yes Yes Yes -Correct Side, Site, Position Yes Yes Yes -Correct Procedure Yes Yes Yes -Procedure Performed Yes Yes Yes -Type of Procedure Debridement Debridement Debridement -Clinical Debridement Subcutaneous Subcutaneous Subcutaneous -Post Debridement Size (cm) - Length 1.8 1.9 1.3 -Post Debridement Size (cm) - Width 3.6 3.3 2.9 -Post Debridement Size (cm) - Depth 0.3 0.9 0.3 -Total Square Cm 6.48 6.27 3.77 -Wound/Ulcer Outcome Not Healed Not Healed Not Healed -Ulcer Cleansing Rinsed/ Rinsed/ Rinsed/ Irrigated with Irrigated with Irrigated with Saline Saline Saline -Foul Odor after Cleansing No No No -Bioengineered Tissue No No No -Bleeding Controlled with Pressure NA Pressure -Treatment Response Procedure Procedure Procedure Tolerated Well Tolerated Well Tolerated Well Pain Scale: 0-10 Numeric Is Patient Pain Free? Yes Yes Yes Wound debrided: Schleicher or abdominal ulcer Type of Debridement: Excisional debridement Anesthesia Used: 5% Lidocaine Gel Depth: Down to and including healthy tissue, in the subcutaneous layer Percentage of wound debrided: 100 Instrument Used: 5mm curette Tissue Removed: Fibrin Severity: Limited To Skin Breakdown Amount of bleeding with debridement: Mild Bleeding Controlled with: Compression and gauze Patient tolerated procedure well - Additional Wound Wound debrided: Inferior abdominal ulcer Type of Debridement: Excisional debridement Anesthesia Used: 5% Lidocaine Gel Depth: Down to and including healthy tissue, in the subcutaneous layer Percentage of wound debrided: 100 Instrument Used: 5mm curette Tissue Removed: Fibrin Amount of bleeding with debridement: Mild Bleeding Controlled with: Compression and gauze Patient tolerated procedure: Patient tolerated procedure well Assessment/Plan Active Problems Diabetic retinopathy associated with diabetes mellitus due to underlying condition (Acute) Open wound of abdominal wall with complication (Acute) Morbid obesity with BMI of 45.0-49.9, adult (Acute) Assessment: Infected abdominal wall ulcer resolved. Abscess open abdominal wall right side. Diabetic type II uncontrolled. Morbid obesity. Retinopathy diabetic partial blindness Plan: Wash abdominal wall with Hibiclens. Apply Aquacel to base of the ulcer. And also into the inferior ulcer pack ulcer moistened then Adaptic cover with gauze and tape. Follow-up 2 weeks. Discussed better control of his diabetes
== END 2018-03-12 23:59 ==
LOC: WC 10:30
PROVIDERS: Visit Provider Nurse Practitioner
DX: E11.622 Type 2 diabetes mellitus with other skin ulcer (principal); L98.492 Non-pressure chronic ulcer of skin of other sites with fat layer exposed; E11.311 Type 2 diabetes mellitus with unspecified diabetic retinopathy with macular edema; E66.01 Morbid (severe) obesity due to excess calories; Z68.41 Body mass index [BMI] 40.0-44.9, adult; Z71.3 Dietary counseling and surveillance; L98.491 Non-pressure chronic ulcer of skin of other sites limited to breakdown of skin
CPT/HCPCS: 11042

== ENCOUNTER 2018-03-19 08:03 | Outpatient (RCR) | payer MEDICARE, SELFPAY ==
[2018-03-13 01:31] VITALS: BP 135/60; PULSE 71; RESP 18; TEMP 36.3
[2018-03-19 11:00] VITALS: BP 139/75; PULSE 69; RESP 18; TEMP 36.6
--- NOTE | 2018-03-19 12:14 | PCM.WC.PN ---
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 Status: Acute Current Visit: Yes Code(s): E08.319 - Diabetes mellitus due to underlying condition with unspecified diabetic retinopathy without macular edema (2) Morbid obesity with BMI of 45.0-49.9, adult Status: Acute Current Visit: Yes Code(s): E66.01 - Morbid (severe) obesity due to excess calories; Z68.42 - Body mass index (BMI) 45.0-49.9, adult (3) Nonhealing nonsurgical wound Status: Acute Current Visit: Yes Code(s): T14.8XXA - Other injury of unspecified body region, initial encounter (4) Open wound of abdominal wall with complication Status: Acute Current Visit: Yes Qualifiers: Code(s): S31.109A - Unspecified open wound of abdominal wall, unspecified quadrant without penetration into peritoneal cavity, initial encounter Type of Wound Date of Service: 03/19/18 Chief Complaint: Abdominal wall ulcer History of Wound: 47-year-old white male morbid obesity diabetic not controlled. Appears here with an abdominal open ulcer on the right side. Patient is insulin-dependent diabetic that injects only on the right side because of visual problems. Approximately 3 months ago developed a hardened mass on his right abdomen and told it was a scar tissue and to start using other areas to inject. Patient developed redness swelling and finally it opened and drained yellow and orange pus. Patient was then sent to the wound center patient has been using topical antibiotics to the area. Progress of Wound: The inferior abdominal wound is healed.The superior abdominal ulcer is almost healed to small areas of superficial skin need to be healing 0.1 depth. Pre-albumin was normal for him hemoglobin A1c was well. Patient will continue using the dressing changes as prescribed . We will switch him to Promogran and see if we can close him by next week. - Physical Exam Vital Signs Temp Pulse Resp BP 97.8 F 69 18 139/75 H 03/19/18 11:00 03/19/18 11:00 03/19/18 11:03/19/18 11:00 General: Oriented x3, Cooperative, Well developed HEENT: Atraumatic, PERRLA Oral: Moist Mucosa Neck: Supple, No JVD Lungs: Clear to auscultation, Normal air movement Cardiovascular: Regular rate, Regular Rhythm Abdomen: Bowel Sounds Present, Soft, Non Tender, No Hepato-splenomegaly, - - Nominal ulcers inferior resolved superior almost closed. Extremities: No clubbing, No edema Wound Measurements and Assessment WC - Nurse 1 - General Ulcer Measurement Start: 03/19/18 11:00 Freq: Status: Active Protocol: Activity Type Activity Date Activity User E-Sign Co-Sign Detail Recorded Client Recorded Date Recorded By Document 03/19/18 11:00 [id number] 03/19/18 11:03 03/19/18 11:00 Wound Center Nurse 1 [Ulcer Assessment] #3 INFERIOR ABCESS ULCER -Combined with other wound No -Current Size (cm) - Length 0 -Current Size (cm) - Width 0 -Current Size (cm) - Depth 0 -Total Square Cm 0 -Date of Last Picture (Recall this 03/19/18 field) -Photo Taken Yes -Epithelialization Large 67-100% -Tunneling No -Undermining/Tunneling No -Circular Undermining No -Classification - Thickness Full Thickness without Exposed Support Structure -Exudate Amt None Present (0 %) -Wound Margin Distinct, Outline Attached -Granulation Amt Large (67-100%) -Granulation Quality [place] -Slough/Fibrin No -Necrosis Amt None Present (0 %) -Structure Exposed None/Limited to Skin Breakdown -Texture (Virginie-wound Skin Appearance) Assessed Scarring -Moisture (Virginie-wound Skin Appearance No Abnormality ) Assessed -Color (Virginie-wound Skin Appearance) No Abnormality Assessed -Temperature (Virginie-wound Skin No Abnormality Appearance) (Pt Warm) -Tenderness on Palpation (Virginie-wound No Skin Appearance) -Ulcer Cleansing Rinsed/ Irrigated with Saline -Foul Odor after Cleansing No #2- RT ABD SUPERIOR -Combined with other wound No -Current Size (cm) - Length 0.5 -Current Size (cm) - Width 0.5 -Current Size (cm) - Depth 0.2 -Total Square Cm 0.25 -Date of Last Picture (Recall this 03/19/18 field) -Photo Taken Yes -Epithelialization Medium 34-66% -Tunneling No -Undermining/Tunneling No -Circular Undermining No -Classification - Thickness Full Thickness without Exposed Support Structure -Exudate Amt Small (1-33%) -Exudate Type Serosanguineous -Wound Margin Distinct, Outline Attached -Granulation Amt Large (67-100%) -Granulation Quality [place] -Slough/Fibrin Yes -Necrosis Amt Small (1-33%) -Necrotic Tissue Type Adherent Slough -Structure Exposed Fascia Fat Layer Exposed -Texture (Virginie-wound Skin Appearance) Assessed Scarring -Moisture (Virginie-wound Skin Appearance No Abnormality ) Assessed -Color (Virginie-wound Skin Appearance) No Abnormality Assessed -Temperature (Virginie-wound Skin No Abnormality Appearance) (Pt Warm) -Tenderness on Palpation (Virginie-wound No Skin Appearance) -Ulcer Cleansing Rinsed/ Irrigated with Saline -Foul Odor after Cleansing No -Anesthetic Used 5% Lidocaine Gel [Edema Assessment] -Lower Limb Edema Present No WC - Nurse 2 - General Ulcer CM Notes Start: 03/19/18 11:00 Freq: Status: Active Protocol: Activity Type Activity Date Activity User E-Sign Co-Sign Detail Recorded Client Recorded Date Recorded By Document 03/19/18 11:17 MW [id number] 03/19/18 11:21 MW 03/19/18 11:17 Wound Center Nurse 2 [Procedure/Treatment] #2- RT ABD SUPERIOR -Time 11:17 -Correct Patient Yes -Correct Side, Site, Position Yes -Correct Procedure Yes -Procedure Performed Yes -Type of Procedure Debridement -Clinical Debridement Subcutaneous -Post Debridement Size (cm) - Length 0.4 -Post Debridement Size (cm) - Width 0.9 -Post Debridement Size (cm) - Depth 0.1 -Total Square Cm 0.36 -Wound/Ulcer Outcome Not Healed -Ulcer Cleansing Rinsed/ Irrigated with Saline -Foul Odor after Cleansing No -Bioengineered Tissue No -Bleeding Controlled with Pressure -Treatment Response Procedure Tolerated Well [See Physician Procedure note for Specifics] Pain Scale: 0-10 Numeric [Pain] -Is Patient Pain Free? Yes Musculoskeletal: No Tenderness to Palpation of Joints or Extremities Lymphatic: No Cervical, Supraclavicular, or Inguinal Adenopathy Neurological: Cranial nerves II-XII grossly intact, Neuro grossly intact Psych/Mental Status: Normal Affect, Appropriate Debridement Note Post-Debridement Measurements/Treatment WC - Nurse 2 - General Ulcer CM Notes Start: 03/19/18 11:00 Freq: Status: Active Protocol: Activity Type Activity Date Activity User E-Sign Co-Sign Detail Recorded Client Recorded Date Recorded By Document 03/19/18 11:17 MW [id number] 03/19/18 11:21 MW 03/19/18 11:17 Wound Center Nurse 2 #2- RT ABD SUPERIOR -Time 11:17 -Correct Patient Yes -Correct Side, Site, Position Yes -Correct Procedure Yes -Procedure Performed Yes -Type of Procedure Debridement -Clinical Debridement Subcutaneous -Post Debridement Size (cm) - Length 0.4 -Post Debridement Size (cm) - Width 0.9 -Post Debridement Size (cm) - Depth 0.1 -Total Square Cm 0.36 -Wound/Ulcer Outcome Not Healed -Ulcer Cleansing Rinsed/ Irrigated with Saline -Foul Odor after Cleansing No -Bioengineered Tissue No -Bleeding Controlled with Pressure -Treatment Response Procedure Tolerated Well Pain Scale: 0-10 Numeric Is Patient Pain Free? Yes Wound debrided: Area right abdominal ulcer Type of Debridement: Excisional debridement Anesthesia Used: 5% Lidocaine Gel Depth: Down to and including healthy tissue Instrument Used: 5mm curette Tissue Removed: Fibrin Severity: Limited To Skin Breakdown Amount of bleeding with debridement: Mild Bleeding Controlled with: Compression and gauze Patient tolerated procedure well Assessment/Plan Active Problems Diabetic retinopathy associated with diabetes mellitus due to underlying condition (Acute) Open wound of abdominal wall with complication (Acute) Nonhealing nonsurgical wound (Acute) Morbid obesity with BMI of 45.0-49.9, adult (Acute) Assessment: Infected abdominal wall ulcer resolved. Abscess open abdominal wall right side inferior abdominal wall ulcer resolved. Diabetic type II uncontrolled. Morbid obesity. Retinopathy diabetic partial blindness Plan: Wash abdominal wall with Hibiclens. Apply Promogran to base of the ulcer gauze and tape. Follow-up 1 weeks. Discussed better control of his diabetes
== END 2018-04-11 23:59 ==
LOC: WC 08:03
PROVIDERS: Visit Provider Nurse Practitioner
DX: E11.622 Type 2 diabetes mellitus with other skin ulcer (principal); L98.491 Non-pressure chronic ulcer of skin of other sites limited to breakdown of skin; E66.01 Morbid (severe) obesity due to excess calories; Z68.42 Body mass index [BMI] 45.0-49.9, adult; Z71.3 Dietary counseling and surveillance; E11.319 Type 2 diabetes mellitus with unspecified diabetic retinopathy without macular edema; E11.65 Type 2 diabetes mellitus with hyperglycemia
CPT/HCPCS: 11042